=== PATIENT | female | born 1975 | race Caucasian/White ===

== ENCOUNTER 2023-09-22 07:37 | Emergency (ER) | payer OTHER ==
[2023-09-22 08:08] VITALS: BP 118/92; PULSE 88; RESP 18; TEMP 98.4; BMI 30.1
[2023-09-22] MEDS ORDERED: DIPHTH,PERTUSS(ACELL),TET 0.5 ML DISP.SYRIN IM ONE (08:31)
[2023-09-22] MEDS: NAPROXEN 500 MG TABLET PO ONE (08:34)
[2023-09-22] MEDS: DIPHTH,PERTUSS(ACELL),TET 0.5 ML DISP.SYRIN IM ONE (08:34)
[2023-09-22] MEDS ORDERED: AMOX TR/POT CLAV 875MG/125MG TABLETS (FP) ONE (09:14)
[2023-09-22] MEDS: AMOX TR/POT CLAV 875MG/125MG TABLETS (FP) PO ONE (09:15)
== END 2023-09-22 09:53 | disposition home or self-care (01) ==
LOC: FER 07:37
PROC: 3E0234Z Introduction of Serum, Toxoid and Vaccine into Muscle, Percutaneous Approach (ICD-10-PCS; principal; 2023-09-22)
DX: M54.50 Low back pain, unspecified (principal); M54.6 Pain in thoracic spine; M25.531 Pain in right wrist; R51.9 Headache, unspecified; Z23 Encounter for immunization; Y04.8XXA Assault by other bodily force, initial encounter
CPT/HCPCS: 70486-TC; 72070-TC-FY; 72100-TC-FY; 73110-TC-RT-FY; 90471; 90715; 99284-25

== ENCOUNTER 2023-12-19 18:25 | Emergency (ER) | payer OTHER ==
[2023-12-19 18:42] VITALS: BP 131/94; PULSE 88; RESP 16; TEMP 98.6; BMI 29.8
[2023-12-19] MEDS: AZITHROMYCIN 500 MG TABLET PO ONE (20:15)
== END 2023-12-19 20:21 | disposition home or self-care (01) ==
LOC: FER 18:25
DX: J18.9 Pneumonia, unspecified organism (principal); R09.89 Other specified symptoms and signs involving the circulatory and respiratory systems; J02.9 Acute pharyngitis, unspecified; R42 Dizziness and giddiness; R05.9 Cough, unspecified; Z20.822 Contact with and (suspected) exposure to COVID-19
CPT/HCPCS: 0241U-QW; 71045-TC-FY; 99284-25